=== PATIENT | female | born 1960 | race Caucasian/White ===

== ENCOUNTER → 2019-05-12 | Outpatient (CLI) | payer BC | END | disposition home or self-care (01) | LOC: CFH 13:38 | PROVIDERS: ATTEND Obstetrics & Gynecology | DX: Z12.31 Encounter for screening mammogram for malignant neoplasm of breast (principal) | CPT/HCPCS: 77067 ==

== ENCOUNTER → 2020-08-23 | Outpatient (CLI) | payer OTHER ==
[~2020-08-23] MED LIST: CHOL200074 PO; ESTR10IN VG; POLY1GRA PO; POTA1POW12 PO; VITA1TAB85 PO
[2020-08-23 12:13] LABS: BASOPHILS % (AUTO) 1 % (0-1); EOSINOPHILS % (AUTO) 1 % (1-7); LYMPHOCYTES % (AUTO) 33 % (22-44); MEAN CORPUSCULAR HEMOGLOBIN 29.8 pg (27.0-34.8); MEAN PLATELET VOLUME 6.6 fL (7.4-10.4); MONOCYTES % (AUTO) 8 % (2-9); NEUTROPHILS % (AUTO) 58 % (42-75); PLATELET COUNT 296 x10^3/uL (130-400); RED CELL DISTRIBUTION WIDTH 13.5 % (9.6-15.2)
[2020-08-23 12:14] LABS: MICROSCOPIC INDICATED
[2020-08-23 12:16] LABS: MD NO
[2020-08-23 12:20] LABS: ANION GAP 5 mmol/L (5-15); CALCIUM 9.4 mg/dL (8.5-10.1); CHLORIDE 106 mmol/L (98-107); CREATININE 0.94 mg/dL (0.55-1.02)
== END | disposition home or self-care (01) ==
LOC: STAR 11:09
PROVIDERS: ATTEND Obstetrics & Gynecology
DX: Z01.818 Encounter for other preprocedural examination (principal); Z20.822 Contact with and (suspected) exposure to COVID-19
CPT/HCPCS: 36415; 80048; 81001; 85025; 93005; U0003

== ENCOUNTER 2020-08-29 07:56 | Day surgery (SDC) | payer OTHER ==
[~2020-08-29] VITALS: Ht 157.5 cm; Wt 64.7 kg
[2020-08-29] MEDS ORDERED: LACTATED RINGERS 1,000 ML IV SCH (08:30)
[2020-08-29] MEDS ORDERED: CHLORHEXIDINE 15 ML UDC PO ONE (08:30)
[2020-08-29] MEDS ORDERED: ACETAMINOPHEN 500 MG TABLET PO ONE (08:30)
[2020-08-29] MEDS ORDERED: FLUORESCEIN SODIUM 500 MG/5 ML ONE (09:51)
[2020-08-29] MEDS ORDERED: ESTROGENS CONJUGATED VAG CRM 0.625MG/1G, 30GM ONE (09:51)
[2020-08-29] MEDS ORDERED: BUPIVACAINE/PF 0.25% ONE (09:51)
[2020-08-29] MEDS ORDERED: MIDAZOLAM 1 MG/ML, 2ML ONE (09:56)
[2020-08-29] MEDS ORDERED: FENTANYL PF 250 MCG/5ML ONE (09:56)
[2020-08-29] MEDS ORDERED: METOCLOPRAMIDE 5 MG/ML, 2ML ONE (10:12)
[2020-08-29] MEDS ORDERED: DEXAMETHASONE 4 MG/ML, 1ML ONE (10:12)
[2020-08-29] MEDS ORDERED: KETOROLAC 30 MG/1 ML ONE (10:12)
[2020-08-29] MEDS ORDERED: PROPOFOL 50 ML ONE ×2 (10:21→10:34)
[2020-08-29] MEDS ORDERED: PROPOFOL 10 MG/ML, 20ML ONE (10:34)
[2020-08-29] MEDS ORDERED: ONDANSETRON 2MG/ML, 2ML ONE (10:34)
[2020-08-29] MEDS ORDERED: SUCCINYLCHOLINE 20 MG/ML, 10ML ONE (10:34)
[2020-08-29] MEDS ORDERED: ROCURONIUM 10MG/ML,5ML ONE (10:34)
[2020-08-29] MEDS ORDERED: NEOSTIGMINE 1 MG/ML, 10ML ONE (10:34)
[2020-08-29] MEDS ORDERED: CEFAZOLIN 1,000 MG ONE (10:34)
[2020-08-29] MEDS ORDERED: GLYCOPYRROLATE 0.2MG/1ML, 5ML ONE (10:34)
[2020-08-29] MEDS ORDERED: ESTROGENS CONJUGATED VAG CRM 0.625MG/1G, 30GM VG ONE (11:04)
[2020-08-29] MEDS ORDERED: OXYcodone 5 MG/5 ML ORAL.SOL UDC ONE (11:39)
[2020-08-29] MEDS ORDERED: FENTANYL PF 100 MCG/2ML ONE (11:39)
[2020-08-29] MEDS: FENTANYL PF 100 MCG/2ML IV PRN ×2 (11:45→12:20)
[2020-08-29] MEDS: OXYcodone 5 MG/5 ML ORAL.SOL UDC PO PRN ×2 (11:59→14:10)
[2020-08-29] MEDS ORDERED: LORazepam 2 MG/ML, 1ML IVPush PRN (12:00)
[2020-08-29] MEDS ORDERED: HYDROmorphone 1 MG/ML, 1ML INJ IVPush PRN (12:00)
[2020-08-29] MEDS ORDERED: ACETAMINOPHEN 325 MG TABLET PO PRN (12:00)
[2020-08-29] MEDS ORDERED: METHOCARBAMOL 1,000 MG in DEXTROSE 5% 100 ML IV PRN (12:00)
[2020-08-29] MEDS ORDERED: hydrALAzine 20 MG/ML, 1ML IV PRN (12:00)
[2020-08-29] MEDS ORDERED: LABETALOL 5MG/ML, 20ML IV PRN (12:00)
[2020-08-29] MEDS ORDERED: EPHEDRINE 50 MG/ML, 1ML IVPush PRN (12:00)
[2020-08-29] MEDS ORDERED: ONDANSETRON 2MG/ML, 2ML IVPush PRN (12:00)
[2020-08-29] MEDS ORDERED: PROMETHAZINE 25 MG/ML, 1ML IVPush PRN (12:00)
[2020-08-29] MEDS ORDERED: MEPERIDINE/PF 25MG/0.5ML IVPush PRN (12:00)
[2020-08-29] MEDS ORDERED: ACETAMINOPHEN 325 MG TABLET ONE (14:07)
== END 2020-08-29 15:00 | disposition home or self-care (01) ==
LOC: OUT 07:56
PROVIDERS: ATTEND Obstetrics & Gynecology
DX: N81.6 Rectocele (principal); K59.00 Constipation, unspecified; Z79.818 Long term (current) use of other agents affecting estrogen receptors and estrogen levels; Z88.5 Allergy status to narcotic agent; Z91.030 Bee allergy status; Z90.710 Acquired absence of both cervix and uterus; Z90.722 Acquired absence of ovaries, bilateral; Z90.79 Acquired absence of other genital organ(s); Z98.890 Other specified postprocedural states; Z80.3 Family history of malignant neoplasm of breast; Z82.49 Family history of ischemic heart disease and other diseases of the circulatory system; Z83.42 Family history of familial hypercholesterolemia
CPT/HCPCS: 57250; J0330; J0690; J1100; J1885; J2250; J2405; J2704; J2710; J2765; J3010; J7120